=== PATIENT | female | born 1965 | race Caucasian/White ===

== ENCOUNTER 2017-06-11 14:59 | Emergency (ER) | payer MEDICARE, MEDICAID ==
[~2017-06-11] VITALS: Ht 162.6 cm; Wt 67.6 kg
[~2017-06-11 14:59] MED LIST: BUPR-40 PO; CLON0.5T PO; FLUO20CA19; LAM100T PO; PREMARIN; ZIPR20CA15 PO; ZOLP10TA PO
[2017-06-11 15:29] LABS: Basophils # (auto) 0 uL; Basophils % (auto) 0.6 % (0.0-2.0); Eosinophils # (auto) 0.1 uL; Eosinophils % (auto) 1.4 % (0.0-7.0); Hematocrit 34.7 % (36.0-46.0); Hemoglobin 11.8 g/dL (12.2-16.2); Lymphocytes # (auto) 1.5 uL; Lymphocytes % (auto) 31.8 % (10.0-50.0); Mean Corpuscular Hemoglobin 30.8 pg (28.0-32.0); Mean Corpuscular Hgb Conc. 33.9 g/dL (32.0-36.0); Mean Corpuscular Volume 90.7 fL (80.0-100.0); Monocytes # (auto) 0.4 uL; Monocytes % (auto) 7.3 % (0.0-12.0); Neutrophils # (auto) 2.8 uL; Neutrophils % (auto) 58.9 % (37.0-80.0); Nucleated Red Blood Cells % 0.1 %; Platelet Count (auto) 423 10^3/uL (140-450); Red Blood Cells 3.82 10^6/uL (4.0-5.20); Red Cell Distribution Width 12.5 % (11.8-14.3); White Blood Cell 4.8 10^3/uL (4.4-10.8)
[2017-06-11 15:49] LABS: Alanine Aminotransferase 20 U/L (13-56); Albumin 3.2 g/dL (3.4-5.0); Anion Gap 7 (5-15); Aspartate Aminotransferase 15 U/L (15-37); BUN/Creatinine Ratio 32.6; Blood Urea Nitrogen 15 mg/dL (7-18); Calcium 8.3 mg/dL (8.5-10.1); Carbon Dioxide 28 mmol/L (21-32); Chloride 104 mmol/L (98-107); GFR African American 184 mL/min; GFR Non-African American 152 mL/min; Glucose 108 mg/dL (74-106); Potassium 4.1 mmol/L (3.5-5.1); Salicylate 2.6 mg/dL (2.8-20.0); Sodium 139 mmol/L (136-145)
[2017-06-11 15:50] LABS: Acetaminophen < 2.0 ug/mL (10-30)
[2017-06-11 15:52] LABS: Alkaline Phosphatase 44 U/L (45-117); Bilirubin, Total < 0.1 mg/dL (0.2-1.0); Total Protein 6.5 g/dL (6.4-8.2)
[2017-06-11 17:06] LABS: Urine Bacteria NONE SEEN /hpf (None Seen); Urine Blood Negative /uL (Negative); Urine Mucus FEW (None Seen); Urine Specific Gravity 1.029 (1.001-1.035); Urine WBC <1 /hpf (0 - 5)
[2017-06-11 17:19] LABS: Alcohol, Urine < 3.0 mg/dL (0-5); Amphetamine Screen, Urine NEGATIVE (NEGATIVE); Barbiturate Scree,Urine NEGATIVE (NEGATIVE); Benzodiazephine Screen, Urine NEGATIVE (NEGATIVE); Cannabinoid Screen, Urine POSITIVE (NEGATIVE); Cocaine Screen, Urine NEGATIVE (NEGATIVE); Opiate Scree,Urine NEGATIVE (NEGATIVE); Phencyclidine Screen, Urine NEGATIVE (NEGATIVE)
[2017-06-11] MEDS ORDERED: DILTIAZEM HCL 180MG ER CAP PO ONE (21:45)
[2017-06-11] MEDS ORDERED: ACETAMINOPHEN 325 MG TAB PO ONE (21:45)
[2017-06-12] MEDS ORDERED: ACETAMINOPHEN 325 MG TAB PO ONE (05:00)
[2017-06-12] MEDS ORDERED: clonazePAM 0.5 MG TAB PO SCH ×2 (10:00)
[2017-06-12] MEDS ORDERED: METOPROLOL SUCCINATE XL 50 MG TAB PO SCH (10:00)
[2017-06-12] MEDS ORDERED: carBAMazepine 200 MG TAB PO SCH ×2 (10:00→22:00)
[2017-06-12] MEDS ORDERED: FLUoxetine HCL 20 MG CAP PO SCH (10:00)
[2017-06-12] MEDS ORDERED: ACETAMINOPHEN 500 MG TAB PO ONE (14:45)
[2017-06-12 19:05] VITALS: BP 156/74
[2017-06-12] MEDS ORDERED: QUEtiapine FUMARATE 100 MG TAB PO SCH (22:00)
[2017-06-12] MEDS ORDERED: DILTIAZEM HCL 180MG ER CAP PO SCH (22:00)
== END 2017-06-12 19:14 | disposition short-term general hospital (02) ==
LOC: ER 14:59
DX: F20.9 Schizophrenia, unspecified (principal); F41.9 Anxiety disorder, unspecified; F32.9 Major depressive disorder, single episode, unspecified; R45.851 Suicidal ideations; Z90.710 Acquired absence of both cervix and uterus
CPT/HCPCS: 36415; 80053; 80156; 80307; 80329; 81001; 85025